=== PATIENT | female | born 1950 | race African-American/Black ===

== ENCOUNTER 2023-07-10 21:01 | Emergency (ER) | payer MEDICARE ==
[2023-07-10] MEDS ORDERED: HYDROcodone/Acetaminophen 5/325 mg Tablet ONE (22:49)
[2023-07-11 00:15] LABS: #Basophils 0.03 10x3/uL (0.0-0.2); #Eosinphils 0.11 10x3/uL (0.0-0.5); #Neutrophils 2.29 10x3/uL (1.5-8.4); %Basophils 0.7 % (0.0-2.0); %Eosinophils 2.7 % (0.0-6.0); %Monocytes 14.5 % (0.0-10.0); %Neutrophils 55.1 % (40.0-75.0); Hematocrit 36.3 % (34.9-44.5); Hemoglobin 12.1 g/dL (12.0-15.5); Mean Corpuscular HGB CONC 33.3 g/dL (32.0-36.0); Mean Corpuscular Hemoglobin 29.4 pg (27.0-33.0); Mean Corpuscular Volume 88.3 fl (81.6-98.3); Mean Platelet Volume 10.2 fl (7.4-10.4); Platelet Count 190 10x3/uL (150-450); RBC Distribution Width 15.8 % (11.5-14.5); Red Blood Cell (RBC) Count 4.11 10x6/uL (3.90-5.03); White Blood Cell (WBC) Count 4.2 10x3/uL (3.5-10.5)
[2023-07-11 00:18] LABS: ALT (SGPT) 11 U/L (8-55); AST (SGOT) 12 U/L (5-34); Albumin 3.4 g/dL (3.4-4.8); Alkaline Phosphatase 77 U/L (40-110); Anion Gap 12 mmol/L (10-20); BUN (Urea Nitrogen) 25 mg/dL (9.8-20.1); Bilirubin, Total 0.5 mg/dL (0.2-1.2); Calc. Creatinine Clearance 0 mL/min (70-130); Calcium 9.1 mg/dL (7.8-10.44); Carbon Dioxide 27 mmol/L (23-31); Chloride 105 mmol/L (98-107); Estimated GFR 87; Globulin 3.8 g/dL (2.4-3.5); Glucose 101 mg/dL (83-110); Potassium 3.4 mmol/L (3.5-5.1); Protein, Total 7.2 g/dL (5.8-8.1); Sodium 141 mmol/L (136-145)
[2023-07-11 01:10] LABS: Bilirubin Neg (Negative); Blood, Urine Negative (Negative); Clarity Clear (Clear); Glucose, Urine (Dipstick) >=1000 mg/dL (Negative); Ketone, Urine Negative (Negative); Leukocyte 25 (Negative); Nitrite Negative (Negative); Protein, Urine (Dipstick) 30 mg/dl (Neg-Trace); Urobilinogen Normal mg/dL (Less than 2); pH, Urine 6.5 (5.0-9.0)
[2023-07-11 01:22] LABS: Bacteria/HPF Rare-Few HPF (None Seen); CAUTI Indications for Culture Dysuria,urgency,freq; RBC/HPF None Seen HPF (0-3); Renal Epithelial 0-3 HPF (None Seen); Squamous Epithelial 0-3 HPF (0-3); WBC/HPF 0-3 HPF (0-3)
[2023-07-11 01:23] LABS: Urine Culture Reflex No No
== END 2023-07-11 01:35 | disposition home or self-care (01) ==
LOC: CSHERS 21:01
DX: G62.89 Other specified polyneuropathies (principal); I10 Essential (primary) hypertension; Z76.0 Encounter for issue of repeat prescription
CPT/HCPCS: 36415; 80053; 81001; 85025; 93005

== ENCOUNTER 2023-08-09 09:50 | Emergency (ER) | payer MEDICARE ==
[2023-08-09] MEDS ORDERED: Lidocaine 4% Patch TD SCH (11:00)
[2023-08-09] MEDS ORDERED: Ketorolac Tromethamine 30 MG (1 mL) VIAL ONE (11:03)
[2023-08-09] MEDS ORDERED: Transdermal Patch Removal TOP SCH (23:00)
== END 2023-08-09 11:29 | disposition home or self-care (01) ==
LOC: CSHERS 09:50
DX: M54.9 Dorsalgia, unspecified (principal); G62.9 Polyneuropathy, unspecified; I10 Essential (primary) hypertension; M54.50 Low back pain, unspecified; E11.9 Type 2 diabetes mellitus without complications; Z79.4 Long term (current) use of insulin; Z79.84 Long term (current) use of oral hypoglycemic drugs; Z79.899 Other long term (current) drug therapy; Z55.6 Problems related to health literacy
CPT/HCPCS: 96372; 99283; J1885

== ENCOUNTER 2024-01-02 11:35 | Outpatient (CLI) | payer MEDICARE | END 2024-01-02 11:36 | disposition home or self-care (01) | LOC: CSHRAD 11:35 | PROVIDERS: ATTEND Nurse Practitioner | DX: I50.32 Chronic diastolic (congestive) heart failure (principal); R91.8 Other nonspecific abnormal finding of lung field | CPT/HCPCS: 71046 ==

== ENCOUNTER 2024-01-02 19:19 | Emergency (ER) | payer MEDICARE ==
[2024-01-02 20:33] LABS: ALT (SGPT) 14 U/L (8-55); AST (SGOT) 17 U/L (5-34); Albumin 3.5 g/dL (3.4-4.8); Alkaline Phosphatase 64 U/L (40-110); Anion Gap 14 mmol/L (10-20); BUN (Urea Nitrogen) 18 mg/dL (9.8-20.1); Bilirubin, Total 0.4 mg/dL (0.2-1.2); Calc. Creatinine Clearance 0 mL/min (70-130); Calcium 9.5 mg/dL (7.8-10.44); Carbon Dioxide 24 mmol/L (23-31); Chloride 109 mmol/L (98-107); Estimated GFR 57; Glucose 184 mg/dL (83-110); Potassium 4.9 mmol/L (3.5-5.1); Protein, Total 7.5 g/dL (5.8-8.1); Sodium 142 mmol/L (136-145)
[2024-01-02 20:38] LABS: Troponin I Less than 0.010 ng/mL (< 0.028)
[2024-01-02] MEDS ORDERED: Furosemide 40 MG (4 mL) VIAL ONE (21:06)
[2024-01-02 21:16] LABS: #Basophils 0.02 10x3/uL (0.0-0.2); #Eosinophils 0.09 10x3/uL (0.0-0.5); #Monocytes 0.56 10x3/uL (0.0-1.1); #Neutrophils 3.42 10x3/uL (1.5-8.4); %Basophils 0.4 % (0.0-2.0); %Eosinophils 1.9 % (0.0-6.0); %Lymphocytes 15.1 % (18.0-47.0); %Monocytes 11.6 % (0.0-10.0); %Neutrophils 70.8 % (40.0-75.0); Hematocrit 36.2 % (34.9-44.5); Hemoglobin 11.3 g/dL (12.0-15.5); Mean Corpuscular HGB CONC 31.2 g/dL (32.0-36.0); Mean Corpuscular Hemoglobin 28.5 pg (27.0-33.0); Mean Corpuscular Volume 91.4 fL (81.6-98.3); Mean Platelet Volume 9.7 fL (7.4-10.4); Platelet Count 290 10x3/uL (150-450); RBC Distribution Width 14.8 % (11.5-14.5); Red Blood Cell (RBC) Count 3.96 10x6/uL (3.90-5.03); White Blood Cell (WBC) Count 4.8 10x3/uL (3.5-10.5)
[2024-01-02 21:25] LABS: PTT 25.8 sec (22.0-33.0); Prothrombin Time 11.1 sec (9.5-12.1)
== END 2024-01-03 01:10 | disposition short-term general hospital (02) ==
LOC: CSHERS 19:19
DX: J90 Pleural effusion, not elsewhere classified (principal); J96.01 Acute respiratory failure with hypoxia; I10 Essential (primary) hypertension; E11.9 Type 2 diabetes mellitus without complications; R78.5 Finding of other psychotropic drug in blood; Z79.84 Long term (current) use of oral hypoglycemic drugs; Z79.899 Other long term (current) drug therapy
CPT/HCPCS: 71045; 71046; 80053; 83880; 84145; 84484; 85025; 85610; 85730; 87428; 93005; J1940; 36415; 96374

== ENCOUNTER 2024-01-15 22:31 | Emergency (ER) | payer MEDICARE ==
[~2024-01-15 22:31] MED LIST: Iopamidol 370 76% 100 ML VIAL ONE
[2024-01-15] MEDS ORDERED: methylPREDNISolone Sod Succ/PF 125 MG/2 ML VIAL ONE (22:59)
[2024-01-15] MEDS ORDERED: Ipratropium/Albuterol 3 ML NEB ONE (23:05)
[2024-01-16 00:10] LABS: #Basophils 0.03 10x3/uL (0.0-0.2); #Eosinophils 0.11 10x3/uL (0.0-0.5); #Monocytes 0.67 10x3/uL (0.0-1.1); #Neutrophils 5.07 10x3/uL (1.5-8.4); %Basophils 0.4 % (0.0-2.0); %Eosinophils 1.6 % (0.0-6.0); %Lymphocytes 12.2 % (18.0-47.0); %Monocytes 9.9 % (0.0-10.0); %Neutrophils 75.3 % (40.0-75.0); ALT (SGPT) 13 U/L (8-55); AST (SGOT) 18 U/L (5-34); Albumin 3.3 g/dL (3.4-4.8); Alkaline Phosphatase 53 U/L (40-110); Anion Gap 17 mmol/L (10-20); BUN (Urea Nitrogen) 22 mg/dL (9.8-20.1); Bilirubin, Total 0.3 mg/dL (0.2-1.2); Calc. Creatinine Clearance 0 mL/min (70-130); Calcium 8.5 mg/dL (7.8-10.44); Carbon Dioxide 23 mmol/L (23-31); Chloride 109 mmol/L (98-107); Estimated GFR 62; Globulin 3.6 g/dL (2.4-3.5); Glucose 121 mg/dL (83-110); Hematocrit 34.2 % (34.9-44.5); Hemoglobin 10.5 g/dL (12.0-15.5); Magnesium 1.4 mg/dL (1.6-2.6); Mean Corpuscular HGB CONC 30.7 g/dL (32.0-36.0); Mean Corpuscular Hemoglobin 27.9 pg (27.0-33.0); Mean Corpuscular Volume 90.7 fL (81.6-98.3); Mean Platelet Volume 9.9 fL (7.4-10.4); Platelet Count 288 10x3/uL (150-450); Potassium 4.9 mmol/L (3.5-5.1); Protein, Total 6.9 g/dL (5.8-8.1); RBC Distribution Width 15.3 % (11.5-14.5); Red Blood Cell (RBC) Count 3.77 10x6/uL (3.90-5.03); Sodium 144 mmol/L (136-145); White Blood Cell (WBC) Count 6.7 10x3/uL (3.5-10.5)
[2024-01-16 00:17] LABS: Troponin I Less than 0.010 ng/mL (< 0.028)
[2024-01-16 00:19] LABS: INR-International Normal Ratio 1.1; PTT 27.3 sec (22.0-33.0)
[2024-01-16] MEDS ORDERED: cefTRIAXone (ROCEPHIN) 2 GM VIAL ONE (04:14)
[2024-01-16] MEDS ORDERED: Azithromycin 500 MG VIAL ONE (04:52)
[2024-01-16] MEDS ORDERED: Furosemide 40 MG (4 mL) VIAL ONE (06:01)
[2024-01-16] MEDS ORDERED: Nitroglycerin 0.4 MG TAB 1 EACH ONE (06:20)
[2024-01-16] MEDS ORDERED: Magnesium 2 GM/50 ML BAG (IN WATER) ONE (06:21)
== END 2024-01-16 11:40 | disposition short-term general hospital (02) ==
LOC: CSHERS 22:31
DX: J44.1 Chronic obstructive pulmonary disease with (acute) exacerbation (principal); R09.02 Hypoxemia; J90 Pleural effusion, not elsewhere classified; E11.9 Type 2 diabetes mellitus without complications; I10 Essential (primary) hypertension; Z55.0 Illiteracy and low-level literacy
CPT/HCPCS: 71045; 71260; 80053; 83605; 83735; 83880; 84484; 85025; 85610; 85730; 93005; 94640; 94760; 96374; 96375; 99285; J0456; J0696; J1940; J2919; J3475; J7620